=== PATIENT | male | born 1940 | race Caucasian/White ===

== ENCOUNTER 2018-11-24 00:57 | Emergency (ER) | payer MEDICARE, BC, SELFPAY ==
[2018-11-24 01:09] VITALS: BP 149/81; PULSE 55; RESP 14; TEMP 36.6; O2SAT 100
[2018-11-24 04:05] VITALS: BP 120/67; PULSE 55; RESP 16; O2SAT 97
--- NOTE | 2018-11-24 05:46 | ED.WOUNDLAC ---
HPI - Wound/Laceration General Chief Complaint: Wound/Laceration Stated Complaint: CUT RIGHT EAR WHEN HE ROLLED OUT OF BED Time Seen by Provider: 11/24/18 01:07 Source: patient and family Mode of arrival: ambulatory Limitations: no limitations History of Present Illness HPI narrative: 78-year-old male nonsmoker presents with his for evaluation of a large complex laceration behind his right after he accidentally rolled out of bed and struck his head. Takes no blood thinners, denies loss of consciousness, nausea, vomiting or. He denies any change in his ability to hear. He has no focal neurologic findings such as numbness, tingling or weakness. Onset (ago): minute(s) Location: scalp Place: home Patient tetanus UTD: Yes Context: accidental Associated symptoms: pain Related Data Previous Rx's Medication Instructions Recorded cephalexin [Keflex] 500 mg PO QID 7 Days #28 cap 11/24/18 Review of Systems Constitutional Denies chills, Denies fever(s), Denies lethargy and Denies weakness Eyes Denies change in vision, Denies eye discharge, Denies irritation and Denies loss of vision ENT Ears, Nose, Mouth, and Throat: Denies change in voice, Denies neck pain and Denies sore throat Cardiovascular Denies chest pain, Denies irregular heart rhythm, Denies lightheadedness, Denies palpitations, Denies dyspnea, Denies dyspnea on exertion and Denies orthopnea Respiratory Denies cough, Denies dyspnea, Denies dyspnea on exertion and Denies wheezing Gastrointestinal Gastrointestinal: Denies abdominal pain, Denies change in bowel habits, Denies diarrhea, Denies nausea and Denies vomiting Genitourinary Denies hematuria, Denies flank pain, Denies urinary incontinence and Denies urinary urgency Musculoskeletal Denies neck pain Integumentary/Breasts Denies pruritus, Denies erythema, Denies rash and Reports wounds Neurologic Denies confusion, Denies loss of vision and Denies weakness Psychiatric Denies anxiety, Denies confusion, Denies depression, Denies homicidal ideation and Denies suicidal ideation Endocrine Denies palpitations Hematologic/Lymphatic Denies easy bruising Allergic/Immunologic Denies wheezing PFSH Social History Smoking Status: Never smoker Social History Smoking Status: Never smoker Exam Narrative Exam Narrative: GEN: AOx3 and in mild distress EYES: Pupils are equal, round, and reactive to light and accommodation. Extraoccular muscles are intact bilaterally. There is no subconjunctival hemorrhage or exudate. EAR: 3 cm complex, deep laceration on the posterior aspect of right ear. No cartilage involvement. Minimal active bleeding. Minimal erythema in canal, no injury to [place], hemotympanum CHEST: Lungs are clear to auscultation bilaterally and free of wheezes, rales, or rhonchi. Heart rate is regular rhythm, there are no murmurs, clicks, rubs, or gallops. There is no chest wall tenderness. ABD: Abdomen is soft and nontender. There is no guarding or rebound. Bowel sounds are normal in all 4 quadrants. There is no mass or organomegaly. EXT: Full painless ROM of all extremities with no loss of sensation or strength. SKIN: Warm, pink, and dry. No erythema or rash Initial Vital Signs Initial Vital Signs: Vital Signs Temperature 97.8 F 11/24/18 01:09 Pulse Rate 55 L 11/24/18 01:09 Respiratory Rate 14 11/24/18 01:09 Blood Pressure 149/81 H 11/24/18 01:09 Pulse Oximetry 100 11/24/18 01:09 Procedures Laceration Repair Laceration 1: Site: scalp Side (If applicable): right Size (cm): 3 Description: irregular Depth: involves muscle layer Local Anesthetic: lidocaine 1% and with bicarb Amount of anesthesia used (mL): 4 Pre-repair: wound explored and irrigated extensively Skin layer closed with: nylon Size (cm): 6-0 Number of sutures: 10 Technique: simple, interrupted Subcutaneous layer closed with: vicryl Size: 5-0 Number of sutures: 3 Technique: simple, interrupted Course Vital Signs - 8 hr 11/24/18 01:09 11/24/18 04:05 Temperature 97.8 F Pulse Rate 55 L 55 L Respiratory Rate 14 16 Blood Pressure 149/81 H 120/67 Pulse Oximetry 100 97 Discharge Plan Departure Patient Disposition: Home Clinical Impression: Laceration Discharge Date/Time: 11/24/18 04:06 Interventions: ED Discharge Assessment Last Done: 11/24/18 04:05 Instructions: DI for Laceration Repair Activity Restrictions/Additional Instructions: *You have been diagnosed with [ complex laceration of the right ear ] *What to do: *Take medications as directed: Your antibiotic has been electronically transmitted to the [facility] [place] at your request *Follow up with [facility] ear nose and throat, call for an appointment. Let them know you were seen in the Emergency Department and that we ask that you be seen in follow up *Return to ER if you should have any new, worsening or concerning symptoms Please keep the wound clean and dry to the best of your ability. Please monitor for signs of infection such as redness to the skin or increasing pain. Have the sutures removed by your doctor in about 7 days. If you are unable to get into your doctor, we would be happy to remove the sutures in that same timeframe. Prescriptions: New cephalexin [Keflex] 500 mg capsule 500 mg PO QID 7 Days Qty: 28 RF: 0 Referrals: Royal Pike MD [Physician] -
== END 2018-11-24 04:06 | disposition home or self-care (01) ==
PROVIDERS: Emergency Provider Emergency Medicine; PCP Family Medicine
DX: S01.01XA Laceration without foreign body of scalp, initial encounter (principal)
CPT/HCPCS: 12032; 99283

== ENCOUNTER 2019-10-18 13:00 | Outpatient (RCR) | payer MEDICARE, BC, SELFPAY ==
--- NOTE | 2019-08-19 16:00 | PT.OIE ---
Current Diagnoses Stress incontinence (female) (male) (08/19/19) Fecal smearing (08/19/19) Personal history of malignant neoplasm of prostate (08/19/19) Visit Care Team Role Provider Type Luc Dillon MD Primary Care Provider Non-Staff Specialty: Medical Address: [address] [place] [address], [id number] Email: Beni Ambrocio MD Attending Provider Physician Specialty: Urology Address: [address] [place] [address], [phone] Email: Physical Therapy Initial Evaluation PT-OP-A Visit Information Start: 08/19/19 07:24 Freq: Status: Active Protocol: Document 08/19/19 13:45 AMB (Rec: 08/19/19 16:30 AMB [email or web address]) Out-Patient Physical Therapy Visit Information Visit Information Visit Type Initial Evaluation Visit Start Time 13:45 Visit Stop Time 14:30 Total Visit Minutes 45 Visit Number 1 PT-OP-B Current Condition Start: 08/19/19 07:24 Freq: Status: Active Protocol: Document 08/19/19 13:45 AMB (Rec: 08/19/19 16:30 AMB [email or web address]) Current Condition History of Current Condition Onset Date 2015 Current Complaints stress urinary incontinence, intermittent fecal incontinence History of Current Condition Ed had prostate surgery (no radiation) almost 4 years ago. Since that time he has noticed urinary incontinence especially with golf. He does wear pads, and feels that he can soak through one after a round of golf. He does walk rather than using a cart. He also notes leaking with lifting, a strong cough or sneeze, but denies leaking with sit to stand or supine to sit. He also has noticed fecal leaking, most prevelant when he has looser stools. The fecal incontinence happens several times per week. He notes usually he has type 3 bowel movements, but if it gets a little looser, after he has a bowel movement he will get fecal smearing. Treatment Goals Patient/Caregiver Goals Golf without leaking. Reduce fecal incontinence. Prior Functional Status Baseline Function- ADL's Independent Baseline Function- Mobility Independent Current Functional Impairments (Reported) Functional Limitations- ADL's Urinary incontinence with golf , lifting, cough sneeze Personal Factors Other Personal Factors That May Effect Personal history of neuropathy Therapy/Recovery , prior prostate surgery PT-OP-C Subjective Start: 08/19/19 07:24 Freq: Status: Active Protocol: Document 08/19/19 13:45 AMB (Rec: 08/19/19 16:30 AMB [email or web address]) Patient Questionnaires Pelvic Pain and Urgency/Frequency Patient Symptom Scale Pelvic Pain Score 3 PT-OP-I Pelvic Floor Start: 08/19/19 07:24 Freq: Status: Active Protocol: Document 08/19/19 13:45 AMB (Rec: 08/19/19 16:30 AMB [email or web address]) Pelvic Floor Assessment Urine Pelvic Floor Surgery Yes: prostate 2016 Leakage Size Medium Leakage Cause Cough,Exercise,Lifting,Sneeze Leaks Per Day constant Voiding Frequency 6x/day Nocturia 0 Urine Pad Type Maxi Pad Bowel Bowel Symptoms Fecal Leakage [place] Stool Chart Type 1-7 3 [place] Stool Chart Comments notes leaking when at a 4 on bristol stool scale Pelvic Clock Inter-Rectal Assessment fatigues quickly, needed cues to avoid gluteal compensation SEMG (uV) Baseline 2.5 Quick Contraction 20 10 Second Contraction 8.6 Recruitment Pattern Fair Stability of Hold Poor/Slow SEMG Stability of Rest Good Contraction Ability Voluntary Contraction Weak Voluntary Relaxation Moderate Muscle Endurance (Seconds) 4 Number of Quick Contractions In 10 4 Seconds Comments Pelvic Floor Comments inter rectal 2/5 PT-OP-T Assessment and Plan Start: 08/19/19 07:24 Freq: Status: Active Protocol: Document 08/19/19 13:45 AMB (Rec: 08/20/19 07:28 AMB [email or web address]) Physical Therapy Assessment Rehab Potential Rehabilitation Potential Good Evaluation Complexity Number of Personal Factors/Comorbidities 1-2 Number of Body Systems Impaired 1-2 Clinical Presentation at Evaluation Stable Impairments Impairments Functional Activities,Strength Goals Two Impairment Pelvic floor strength Short Term Goal (STG) Ed will improve his pelvic floor strength so that he can hold a pelvic floor contraction for 10 seconds in standing. STG Duration 4 weeks Halfway Goal (LTG) Ed will improve his pelvic floor strength to 4/5. LTG Duration 8 weeks One Impairment Urinary stress incontinence Short Term Goal (STG) Ed will lift 10 pounds from the floor to waist height without leaking urine. STG Duration 4 weeks Transportation Broker Goal (LTG) Ed will hit a golf ball without leaking urine. LTG Duration 8 weeks Assessment Summary Assessment Ed attends physical therapy with a 4 year history of stress urinary incontinence since his prostate surgery. His pelvic floor strength was poor, and this in combination with his surgical history is creating stress urinary incontinence with golf, lifting, and sometimes cough and sneeze. He had previously tried Kegels and did not find them helpful, but will benefit from a more regimented program. He may also benefit from pelvic floor strengthening for his intermittent fecal incontinence, which he notices when his bowel movements are looser than normal. Physical Therapy Plan Frequency and Duration Frequency of Treatment 1x/Week Duration of Treatment 8 weeks Plan of Care Start Date 08/19/19 Plan of Care End Date 10/14/19 Therapeutic Interventions Therapeutic Interventions Home Exercise Program,Manual Therapy,Neuromuscular Re- education,Self-Care/Home Management,Therapeutic Activities,Therapeutic Exercises Modalities Biofeedback,Electric Stimulation Next Visit Focus/Plan Next Note Type Treatment Note Next Visit Plan Progress with sEMG, can trial NMES. Progress into seated as able.
--- NOTE | 2019-08-19 16:00 | PT.OPPOC ---
Physical, Occupational & Speech Therapy At [facility] Current Diagnoses Stress incontinence (female) (male) (08/19/19) Fecal smearing (08/19/19) Personal history of malignant neoplasm of prostate (08/19/19) Visit Care Team Role Provider Type Luc Dillon MD Primary Care Provider Non-Staff Specialty: Medical Address: [address] [place] [address], [phone] Email: Beni Ambrocio MD Attending Provider Physician Specialty: Urology Address: [address] [place] [address], [id number] Email: Plan Of Care PT-OP-T Assessment and Plan Start: 08/19/19 07:24 Freq: Status: Active Protocol: Document 08/19/19 13:45 AMB (Rec: 08/20/19 07:28 AMB [email or web address]) Physical Therapy Assessment Rehab Potential Rehabilitation Potential Good Evaluation Complexity Number of Personal Factors/Comorbidities 1-2 Number of Body Systems Impaired 1-2 Clinical Presentation at Evaluation Stable Impairments Impairments Functional Activities,Strength Goals Two Impairment Pelvic floor strength Short Term Goal (STG) Ed will improve his pelvic floor strength so that he can hold a pelvic floor contraction for 10 seconds in standing. STG Duration 4 weeks Director Professional Services Goal (LTG) Ed will improve his pelvic floor strength to 4/5. LTG Duration 8 weeks One Impairment Urinary stress incontinence Short Term Goal (STG) Ed will lift 10 pounds from the floor to waist height without leaking urine. STG Duration 4 weeks Director Professional Services Goal (LTG) Ed will hit a golf ball without leaking urine. LTG Duration 8 weeks Assessment Summary Assessment Ed attends physical therapy with a 4 year history of stress urinary incontinence since his prostate surgery. His pelvic floor strength was poor, and this in combination with his surgical history is creating stress urinary incontinence with golf, lifting, and sometimes cough and sneeze. He had previously tried Kegels and did not find them helpful, but will benefit from a more regimented program. He may also benefit from pelvic floor strengthening for his intermittent fecal incontinence, which he notices when his bowel movements are looser than normal. Physical Therapy Plan Frequency and Duration Frequency of Treatment 1x/Week Duration of Treatment 8 weeks Plan of Care Start Date 08/19/19 Plan of Care End Date 10/14/19 Therapeutic Interventions Therapeutic Interventions Home Exercise Program,Manual Therapy,Neuromuscular Re- education,Self-Care/Home Management,Therapeutic Activities,Therapeutic Exercises Modalities Biofeedback,Electric Stimulation Next Visit Focus/Plan Next Note Type Treatment Note Next Visit Plan Progress with sEMG, can trial NMES. Progress into seated as able. Plan of Care Dates Plan of Care Start Date 08/19/19 Plan of Care End Date 10/14/19 Electronically Signed by: Kori Berg, PT 08/20/19 0729 Please Sign and Return: I have reviewed this Plan of Care and certify that the skilled therapy services above are required to meet the patient?s needs. Physician Signature Date Printed Name and Credentials Clinical Instructor Signature Printed Name and Credentials
--- NOTE | 2019-08-25 16:00 | PT.OTN ---
Current Diagnoses Stress incontinence (female) (male) (08/25/19) Fecal smearing (08/25/19) Personal history of malignant neoplasm of prostate (08/25/19) Physical Therapy Treatment Note PT-OP-A Visit Information Start: 08/19/19 07:24 Freq: Status: Active Protocol: Document 08/25/19 13:00 AMB (Rec: 08/26/19 07:35 AMB [email or web address]) Out-Patient Physical Therapy Visit Information Visit Information Visit Type Treatment Note Visit Start Time 13:00 Visit Stop Time 13:45 Total Visit Minutes 45 Visit Number 2 PT-OP-B Current Condition Start: 08/19/19 07:24 Freq: Status: Active Protocol: Document 08/19/19 13:45 AMB (Rec: 08/19/19 16:30 AMB [email or web address]) Current Condition History of Current Condition Onset Date 2015 Current Complaints stress urinary incontinence, intermittent fecal incontinence History of Current Condition Ed had prostate surgery (no radiation) almost 4 years ago. Since that time he has noticed urinary incontinence especially with golf. He does wear pads, and feels that he can soak through one after a round of golf. He does walk rather than using a cart. He also notes leaking with lifting, a strong cough or sneeze, but denies leaking with sit to stand or supine to sit. He also has noticed fecal leaking, most prevelant when he has looser stools. The fecal incontinence happens several times per week. He notes usually he has type 3 bowel movements, but if it gets a little looser, after he has a bowel movement he will get fecal smearing. Treatment Goals Patient/Caregiver Goals Golf without leaking. Reduce fecal incontinence. Prior Functional Status Baseline Function- ADL's Independent Baseline Function- Mobility Independent Current Functional Impairments (Reported) Functional Limitations- ADL's Urinary incontinence with golf , lifting, cough sneeze Personal Factors Other Personal Factors That May Effect Personal history of neuropathy Therapy/Recovery , prior prostate surgery PT-OP-C Subjective Start: 08/19/19 07:24 Freq: Status: Active Protocol: Document 08/25/19 13:00 AMB (Rec: 08/26/19 07:35 AMB [email or web address]) OP-PT Subjective Patient Comments Patient Comments Pt is feeling about the same, has been doing HEP. PT-OP-I Pelvic Floor Start: 08/19/19 07:24 Freq: Status: Active Protocol: Document 08/19/19 13:45 AMB (Rec: 08/19/19 16:30 AMB [email or web address]) Pelvic Floor Assessment Urine Pelvic Floor Surgery Yes: prostate 2016 Leakage Size Medium Leakage Cause Cough,Exercise,Lifting,Sneeze Leaks Per Day constant Voiding Frequency 6x/day Nocturia 0 Urine Pad Type Maxi Pad Bowel Bowel Symptoms Fecal Leakage [place] Stool Chart Type 1-[address] [place] Stool Chart Comments notes leaking when at a 4 on bristol stool scale Pelvic Clock Inter-Rectal Assessment fatigues quickly, needed cues to avoid gluteal compensation SEMG (uV) Baseline 2.5 Quick Contraction 20 10 Second Contraction 8.6 Recruitment Pattern Fair Stability of Hold Poor/Slow SEMG Stability of Rest Good Contraction Ability Voluntary Contraction Weak Voluntary Relaxation Moderate Muscle Endurance (Seconds) 4 Number of Quick Contractions In 10 4 Seconds Comments Pelvic Floor Comments inter rectal 2/5 PT-OP-Q Treatments Start: 08/19/19 07:24 Freq: Status: Active Protocol: Document 08/25/19 13:00 AMB (Rec: 08/26/19 07:35 AMB [email or web address]) Therapeutic Exercises Sitting Exercises 2 Sitting Exercise Name roll out Resistance #2 t band Reps/Minutes 2x10 1 Sitting Exercise Name roll in Reps/Minutes 2x10 Neuro Re-Education Treatment Other Activities 1 Details sEMG Comments sidelying: quick flicks and long holds with vc for breathing and to avoid PT-OP-T Assessment and Plan Start: 08/19/19 07:24 Freq: Status: Active Protocol: Document 08/25/19 13:28 AMB (Rec: 08/25/19 13:29 AMB [id number]) Physical Therapy Assessment Assessment Summary Assessment Originally max 31, after reps 28. avg 14.6, baseline 2.3. Pt does continue to show fatigue after repetitions and with 10 second holds. Tolerated roll in roll outs well. Physical Therapy Plan Next Visit Focus/Plan Next Note Type Treatment Note Next Visit Plan Progress with sEMG, can trial NMES. Progress into seated as able.
--- NOTE | 2019-09-08 09:55 | PT.OTN ---
Current Diagnoses Stress incontinence (female) (male) (09/08/19) Fecal smearing (09/08/19) Personal history of malignant neoplasm of prostate (09/08/19) Physical Therapy Treatment Note PT-OP-A Visit Information Start: 08/19/19 07:24 Freq: Status: Active Protocol: Document 09/08/19 08:15 AMB (Rec: 09/08/19 08:33 AMB [id number]) Out-Patient Physical Therapy Visit Information Visit Information Visit Type Treatment Note Visit Start Time 08:15 Visit Stop Time 09:00 Total Visit Minutes 45 Visit Number 3 PT-OP-B Current Condition Start: 08/19/19 07:24 Freq: Status: Active Protocol: Document 08/19/19 13:45 AMB (Rec: 08/19/19 16:30 AMB [email or web address]) Current Condition History of Current Condition Onset Date 2015 Current Complaints stress urinary incontinence, intermittent fecal incontinence History of Current Condition Ed had prostate surgery (no radiation) almost 4 years ago. Since that time he has noticed urinary incontinence especially with golf. He does wear pads, and feels that he can soak through one after a round of golf. He does walk rather than using a cart. He also notes leaking with lifting, a strong cough or sneeze, but denies leaking with sit to stand or supine to sit. He also has noticed fecal leaking, most prevelant when he has looser stools. The fecal incontinence happens several times per week. He notes usually he has type 3 bowel movements, but if it gets a little looser, after he has a bowel movement he will get fecal smearing. Treatment Goals Patient/Caregiver Goals Golf without leaking. Reduce fecal incontinence. Prior Functional Status Baseline Function- ADL's Independent Baseline Function- Mobility Independent Current Functional Impairments (Reported) Functional Limitations- ADL's Urinary incontinence with golf , lifting, cough sneeze Personal Factors Other Personal Factors That May Effect Personal history of neuropathy Therapy/Recovery , prior prostate surgery PT-OP-C Subjective Start: 08/19/19 07:24 Freq: Status: Active Protocol: Document 09/08/19 08:15 AMB (Rec: 09/08/19 08:33 AMB [id number]) OP-PT Subjective Patient Comments Patient Comments Pt definitely noticed leaking with snow shoveling over the last week. Overall doing about the same, is doing his HEP. PT-OP-I Pelvic Floor Start: 08/19/19 07:24 Freq: Status: Active Protocol: Document 08/19/19 13:45 AMB (Rec: 08/19/19 16:30 AMB [email or web address]) Pelvic Floor Assessment Urine Pelvic Floor Surgery Yes: prostate 2016 Leakage Size Medium Leakage Cause Cough,Exercise,Lifting,Sneeze Leaks Per Day constant Voiding Frequency 6x/day Nocturia 0 Urine Pad Type Maxi Pad Bowel Bowel Symptoms Fecal Leakage [place] Stool Chart Type 1-7 3 [place] Stool Chart Comments notes leaking when at a 4 on bristol stool scale Pelvic Clock Inter-Rectal Assessment fatigues quickly, needed cues to avoid gluteal compensation SEMG (uV) Baseline 2.5 Quick Contraction 20 10 Second Contraction 8.6 Recruitment Pattern Fair Stability of Hold Poor/Slow SEMG Stability of Rest Good Contraction Ability Voluntary Contraction Weak Voluntary Relaxation Moderate Muscle Endurance (Seconds) 4 Number of Quick Contractions In 10 4 Seconds Comments Pelvic Floor Comments inter rectal 2/5 PT-OP-Q Treatments Start: 08/19/19 07:24 Freq: Status: Active Protocol: Document 09/08/19 08:15 AMB (Rec: 09/08/19 09:32 AMB [id number]) Therapeutic Exercises Sitting Exercises 2 Sitting Exercise Name roll out Resistance #2 t band Reps/Minutes 2x10 1 Sitting Exercise Name roll in Reps/Minutes 2x10 Comments cue Standing Exercises 1 Standing Exercise Name WBOS/ stride stance Reps/Minutes quick flicks and long holds with breath Neuro Re-Education Treatment Other Activities 1 Details sEMG Comments sidelying: quick flicks and long holds with vc for breathing and to avoid gluts/ abs. PT-OP-T Assessment and Plan Start: 08/19/19 07:24 Freq: Status: Active Protocol: Document 09/08/19 08:15 AMB (Rec: 09/08/19 09:32 AMB [id number]) Physical Therapy Assessment Assessment Summary Assessment Pt did well in sidelying, but needed extensive cueing for breathing and to work on isolation when in standing. Physical Therapy Plan Next Visit Focus/Plan Next Note Type Treatment Note Next Visit Plan Progress with sEMG, can trial NMES. Progress into standing and standing with movement.
--- NOTE | 2019-09-14 16:00 | PT.OTN ---
Current Diagnoses Stress incontinence (female) (male) (09/14/19) Fecal smearing (09/14/19) Personal history of malignant neoplasm of prostate (09/14/19) Physical Therapy Treatment Note PT-OP-A Visit Information Start: 08/19/19 07:24 Freq: Status: Active Protocol: Document 09/14/19 14:30 AMB (Rec: 09/15/19 08:27 AMB [id number]) Out-Patient Physical Therapy Visit Information Visit Information Visit Type Treatment Note Visit Start Time 14:30 Visit Stop Time 15:15 Total Visit Minutes 45 Visit Number 4 PT-OP-B Current Condition Start: 08/19/19 07:24 Freq: Status: Active Protocol: Document 08/19/19 13:45 AMB (Rec: 08/19/19 16:30 AMB [email or web address]) Current Condition History of Current Condition Onset Date 2015 Current Complaints stress urinary incontinence, intermittent fecal incontinence History of Current Condition Ed had prostate surgery (no radiation) almost 4 years ago. Since that time he has noticed urinary incontinence especially with golf. He does wear pads, and feels that he can soak through one after a round of golf. He does walk rather than using a cart. He also notes leaking with lifting, a strong cough or sneeze, but denies leaking with sit to stand or supine to sit. He also has noticed fecal leaking, most prevelant when he has looser stools. The fecal incontinence happens several times per week. He notes usually he has type 3 bowel movements, but if it gets a little looser, after he has a bowel movement he will get fecal smearing. Treatment Goals Patient/Caregiver Goals Golf without leaking. Reduce fecal incontinence. Prior Functional Status Baseline Function- ADL's Independent Baseline Function- Mobility Independent Current Functional Impairments (Reported) Functional Limitations- ADL's Urinary incontinence with golf , lifting, cough sneeze Personal Factors Other Personal Factors That May Effect Personal history of neuropathy Therapy/Recovery , prior prostate surgery PT-OP-C Subjective Start: 08/19/19 07:24 Freq: Status: Active Protocol: Document 09/14/19 14:30 AMB (Rec: 09/15/19 08:27 AMB [id number]) OP-PT Subjective Patient Comments Patient Comments Pt is noticing that he thinks the exercises are getting a little easier, although breathing with it is still hard. Pt continuing to notice leaking with lifting (lifting a grocery bag, not unloading [employer]). PT-OP-I Pelvic Floor Start: 08/19/19 07:24 Freq: Status: Active Protocol: Document 08/19/19 13:45 AMB (Rec: 08/19/19 16:30 AMB [email or web address]) Pelvic Floor Assessment Urine Pelvic Floor Surgery Yes: prostate 2016 Leakage Size Medium Leakage Cause Cough,Exercise,Lifting,Sneeze Leaks Per Day constant Voiding Frequency 6x/day Nocturia 0 Urine Pad Type Maxi Pad Bowel Bowel Symptoms Fecal Leakage [place] Stool Chart Type 1-7 3 [place] Stool Chart Comments notes leaking when at a 4 on bristol stool scale Pelvic Clock Inter-Rectal Assessment fatigues quickly, needed cues to avoid gluteal compensation SEMG (uV) Baseline 2.5 Quick Contraction 20 10 Second Contraction 8.6 Recruitment Pattern Fair Stability of Hold Poor/Slow SEMG Stability of Rest Good Contraction Ability Voluntary Contraction Weak Voluntary Relaxation Moderate Muscle Endurance (Seconds) 4 Number of Quick Contractions In 10 4 Seconds Comments Pelvic Floor Comments inter rectal 2/5 PT-OP-Q Treatments Start: 08/19/19 07:24 Freq: Status: Active Protocol: Document 09/14/19 14:30 AMB (Rec: 09/15/19 08:27 AMB [id number]) Therapeutic Exercises Standing Exercises 2 Standing Exercise Name putting stance Comments quick flicks and long holds 1 Standing Exercise Name WBOS/ stride stance Reps/Minutes quick flicks and long holds with breath Neuro Re-Education Treatment Other Activities 1 Details sEMG Comments sidelying: quick flicks and long holds with vc for breathing and to avoid gluts/ abs. PT-OP-T Assessment and Plan Start: 08/19/19 07:24 Freq: Status: Active Protocol: Document 09/14/19 14:30 AMB (Rec: 09/15/19 08:27 AMB [id number]) Physical Therapy Assessment Assessment Summary Assessment Better breathing today. Max 37, avg 16, baseline 3. Challenged my holding pelvic floor while moving. Physical Therapy Plan Next Visit Focus/Plan Next Note Type Treatment Note Next Visit Plan Continue to work in standing, like in golfing, try to add in movement.
--- NOTE | 2019-09-20 14:44 | PT.OTN ---
Current Diagnoses Stress incontinence (female) (male) (09/20/19) Fecal smearing (09/20/19) Personal history of malignant neoplasm of prostate (09/20/19) Physical Therapy Treatment Note PT-OP-A Visit Information Start: 08/19/19 07:24 Freq: Status: Active Protocol: Document 09/20/19 09:03 AMB (Rec: 09/20/19 09:49 AMB [id number]) Out-Patient Physical Therapy Visit Information Visit Information Visit Type Treatment Note Visit Start Time 09:00 Visit Stop Time 09:45 Total Visit Minutes 45 Visit Number 5 PT-OP-B Current Condition Start: 08/19/19 07:24 Freq: Status: Active Protocol: Document 08/19/19 13:45 AMB (Rec: 08/19/19 16:30 AMB [email or web address]) Current Condition History of Current Condition Onset Date 2015 Current Complaints stress urinary incontinence, intermittent fecal incontinence History of Current Condition Ed had prostate surgery (no radiation) almost 4 years ago. Since that time he has noticed urinary incontinence especially with golf. He does wear pads, and feels that he can soak through one after a round of golf. He does walk rather than using a cart. He also notes leaking with lifting, a strong cough or sneeze, but denies leaking with sit to stand or supine to sit. He also has noticed fecal leaking, most prevelant when he has looser stools. The fecal incontinence happens several times per week. He notes usually he has type 3 bowel movements, but if it gets a little looser, after he has a bowel movement he will get fecal smearing. Treatment Goals Patient/Caregiver Goals Golf without leaking. Reduce fecal incontinence. Prior Functional Status Baseline Function- ADL's Independent Baseline Function- Mobility Independent Current Functional Impairments (Reported) Functional Limitations- ADL's Urinary incontinence with golf , lifting, cough sneeze Personal Factors Other Personal Factors That May Effect Personal history of neuropathy Therapy/Recovery , prior prostate surgery PT-OP-C Subjective Start: 08/19/19 07:24 Freq: Status: Active Protocol: Document 09/20/19 09:00 AMB (Rec: 09/20/19 10:23 AMB [id number]) OP-PT Subjective Patient Comments Patient Comments Pt states he has been doing his HEP and doing so with the breathing has begun to get easier. Symptoms remain about the same. PT-OP-I Pelvic Floor Start: 08/19/19 07:24 Freq: Status: Active Protocol: Document 08/19/19 13:45 AMB (Rec: 08/19/19 16:30 AMB [email or web address]) Pelvic Floor Assessment Urine Pelvic Floor Surgery Yes: prostate 2016 Leakage Size Medium Leakage Cause Cough,Exercise,Lifting,Sneeze Leaks Per Day constant Voiding Frequency 6x/day Nocturia 0 Urine Pad Type Maxi Pad Bowel Bowel Symptoms Fecal Leakage [place] Stool Chart Type 1-7 3 [place] Stool Chart Comments notes leaking when at a 4 on bristol stool scale Pelvic Clock Inter-Rectal Assessment fatigues quickly, needed cues to avoid gluteal compensation SEMG (uV) Baseline 2.5 Quick Contraction 20 10 Second Contraction 8.6 Recruitment Pattern Fair Stability of Hold Poor/Slow SEMG Stability of Rest Good Contraction Ability Voluntary Contraction Weak Voluntary Relaxation Moderate Muscle Endurance (Seconds) 4 Number of Quick Contractions In 10 4 Seconds Comments Pelvic Floor Comments inter rectal 2/5 PT-OP-Q Treatments Start: 08/19/19 07:24 Freq: Status: Active Protocol: Document 09/20/19 09:03 AMB (Rec: 09/20/19 09:49 AMB [id number]) Therapeutic Exercises Sitting Exercises 1 Sitting Exercise Name roll in Reps/Minutes 2x10 Comments cue Standing Exercises 3 Standing Exercise Name lifting 5# Reps/Minutes 20, partial squat only Comments with breath control 2 Standing Exercise Name putting stance Comments quick flicks and long holds 1 Standing Exercise Name full squat PT-OP-T Assessment and Plan Start: 08/19/19 07:24 Freq: Status: Active Protocol: Document 09/20/19 09:00 AMB (Rec: 09/20/19 10:42 AMB [id number]) Physical Therapy Assessment Assessment Summary Assessment Pt with good form with squatting after demonstration. Unable to hold pelvic floor through full squat, but good awareness with partial squat. Physical Therapy Plan Next Visit Focus/Plan Next Note Type Progress Note Next Visit Plan See pt in one month to follow up, retest strength, check for symptomatic improvement.
--- NOTE | 2019-10-18 16:00 | PT.OTN ---
Current Diagnoses Stress incontinence (female) (male) (10/18/19) Fecal smearing (10/18/19) Personal history of malignant neoplasm of prostate (10/18/19) Physical Therapy Treatment Note PT-OP-A Visit Information Start: 08/19/19 07:24 Freq: Status: Active Protocol: Document 10/18/19 13:00 AMB (Rec: 10/18/19 16:25 AMB [email or web address]) Out-Patient Physical Therapy Visit Information Visit Information Visit Type Discharge Summary Visit Start Time 13:00 Visit Stop Time 13:45 Total Visit Minutes 45 Visit Number 6 PT-OP-B Current Condition Start: 08/19/19 07:24 Freq: Status: Active Protocol: Document 08/19/19 13:45 AMB (Rec: 08/19/19 16:30 AMB [email or web address]) Current Condition History of Current Condition Onset Date 2015 Current Complaints stress urinary incontinence, intermittent fecal incontinence History of Current Condition Ed had prostate surgery (no radiation) almost 4 years ago. Since that time he has noticed urinary incontinence especially with golf. He does wear pads, and feels that he can soak through one after a round of golf. He does walk rather than using a cart. He also notes leaking with lifting, a strong cough or sneeze, but denies leaking with sit to stand or supine to sit. He also has noticed fecal leaking, most prevelant when he has looser stools. The fecal incontinence happens several times per week. He notes usually he has type 3 bowel movements, but if it gets a little looser, after he has a bowel movement he will get fecal smearing. Treatment Goals Patient/Caregiver Goals Golf without leaking. Reduce fecal incontinence. Prior Functional Status Baseline Function- ADL's Independent Baseline Function- Mobility Independent Current Functional Impairments (Reported) Functional Limitations- ADL's Urinary incontinence with golf , lifting, cough sneeze Personal Factors Other Personal Factors That May Effect Personal history of neuropathy Therapy/Recovery , prior prostate surgery PT-OP-C Subjective Start: 08/19/19 07:24 Freq: Status: Active Protocol: Document 10/18/19 13:00 AMB (Rec: 10/18/19 16:25 AMB [email or web address]) OP-PT Subjective Patient Comments Patient Comments Pt states urinary incontinence has decreased by about 50% since initiating PT. He was able to do a lot of yardwork without about half the leaking , but is still noticing urinary leaking at times and fecal leakage at times as well . PT-OP-I Pelvic Floor Start: 08/19/19 07:24 Freq: Status: Active Protocol: Document 08/19/19 13:45 AMB (Rec: 08/19/19 16:30 AMB [email or web address]) Pelvic Floor Assessment Urine Pelvic Floor Surgery Yes: prostate 2016 Leakage Size Medium Leakage Cause Cough,Exercise,Lifting,Sneeze Leaks Per Day constant Voiding Frequency 6x/day Nocturia 0 Urine Pad Type Maxi Pad Bowel Bowel Symptoms Fecal Leakage [place] Stool Chart Type 1-7 3 [place] Stool Chart Comments notes leaking when at a 4 on bristol stool scale Pelvic Clock Inter-Rectal Assessment fatigues quickly, needed cues to avoid gluteal compensation SEMG (uV) Baseline 2.5 Quick Contraction 20 10 Second Contraction 8.6 Recruitment Pattern Fair Stability of Hold Poor/Slow SEMG Stability of Rest Good Contraction Ability Voluntary Contraction Weak Voluntary Relaxation Moderate Muscle Endurance (Seconds) 4 Number of Quick Contractions In 10 4 Seconds Comments Pelvic Floor Comments inter rectal 2/5 PT-OP-Q Treatments Start: 08/19/19 07:24 Freq: Status: Active Protocol: Document 10/18/19 13:00 AMB (Rec: 10/19/19 11:05 AMB [email or web address]) Therapeutic Exercises Standing Exercises 1 Standing Exercise Name partial lunge with long holds and quick flicks Comments difficulty holding long hold and coming back up Therapeutic Activity Therapeutic Activity 1 Name breath control with golf swing Comments Pt has a tendency to hold his breath, which does not help him contract pelvic floor. Multiple repetitions with focus on breathing and emigdio pelvic floor with golf swing- pt improved with practice. Neuro Re-Education Treatment Other Activities 1 Details sEMG Comments sidelying: quick flicks and long holds with vc for breathing and to avoid gluts/ abs. PT-OP-T Assessment and Plan Start: 08/19/19 07:24 Freq: Status: Active Protocol: Document 10/18/19 13:00 AMB (Rec: 10/19/19 11:05 AMB [email or web address]) Physical Therapy Assessment Goals Two Impairment Pelvic floor strength Short Term Goal (STG) Ed will improve his pelvic floor strength so that he can hold a pelvic floor contraction for 10 seconds in standing. STG Duration MET Long-Term Goal (LTG) Ed will improve his pelvic floor strength to 4/5. LTG Duration 8 weeks One Impairment Urinary stress incontinence Short Term Goal (STG) Ed will lift 10 pounds from the floor to waist height without leaking urine. STG Duration Intermittently MET Long-Term Goal (LTG) Ed will hit a golf ball without leaking urine. LTG Duration Intermittently met Assessment Summary Assessment Pt with better form and ability to perform lunges after instruction today. Quick flicks with lunges for HEP. Overall pt reports sx reduction of about 50%. His muscle activity as tested by biofeedback, has also improved signficantly. Pt is going to follow up with urologist. 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 Time and continued strengthening should continue to improve. Ed's continence with golf and lifting also depends on how much he has done, as he does continue to fatigue with extended activity. Physical Therapy Plan Frequency and Duration Frequency of Treatment 1x/Week Duration of Treatment 1 week Plan of Care Start Date 10/14/19 Plan of Care End Date 10/21/19 Therapeutic Interventions Therapeutic Interventions Home Exercise Program,Manual Therapy,Neuromuscular Re- education,Self-Care/Home Management,Therapeutic Activities,Therapeutic Exercises Modalities Biofeedback,Electric Stimulation Next Visit Focus/Plan Next Note Type Progress Note Next Visit Plan See pt in one month to follow up, retest strength, check for symptomatic improvement.
--- NOTE | 2019-10-18 16:00 | PT.OPPOC ---
Physical, Occupational & Speech Therapy At [facility] Current Diagnoses Stress incontinence (female) (male) (10/18/19) Fecal smearing (10/18/19) Personal history of malignant neoplasm of prostate (10/18/19) Visit Care Team Role Provider Type Luc Dillon MD Primary Care Provider Non-Staff Specialty: Medical Address: [address] [place] [address], [id number] Email: Beni Ambrocio MD Attending Provider Physician Specialty: Urology Address: [address] [place] [address], [id number] Email: Plan Of Care PT-OP-T Assessment and Plan Start: 08/19/19 07:24 Freq: Status: Active Protocol: Document 10/18/19 13:00 AMB (Rec: 10/19/19 11:05 AMB [email or web address]) Physical Therapy Assessment Goals Two Impairment Pelvic floor strength Short Term Goal (STG) Ed will improve his pelvic floor strength so that he can hold a pelvic floor contraction for 10 seconds in standing. STG Duration MET Alf Goal (LTG) Ed will improve his pelvic floor strength to 4/5. LTG Duration 8 weeks One Impairment Urinary stress incontinence Short Term Goal (STG) Ed will lift 10 pounds from the floor to waist height without leaking urine. STG Duration Intermittently MET [employer] Goal (LTG) Ed will hit a golf ball without leaking urine. LTG Duration Intermittently met Assessment Summary Assessment Pt with better form and ability to perform lunges after instruction today. Quick flicks with lunges for HEP. Overall pt reports sx reduction of about 50%. His muscle activity as tested by biofeedback, has also improved signficantly. Pt is going to follow up with urologist. 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 Time and continued strengthening should continue to improve. Ed's continence with golf and lifting also depends on how much he has done, as he does continue to fatigue with extended activity. Physical Therapy Plan Frequency and Duration Frequency of Treatment 1x/Week Duration of Treatment 1 week Plan of Care Start Date 10/14/19 Plan of Care End Date 10/21/19 Therapeutic Interventions Therapeutic Interventions Home Exercise Program,Manual Therapy,Neuromuscular Re- education,Self-Care/Home Management,Therapeutic Activities,Therapeutic Exercises Modalities Biofeedback,Electric Stimulation Next Visit Focus/Plan Next Note Type Progress Note Next Visit Plan See pt in one month to follow up, retest strength, check for symptomatic improvement. Plan of Care Dates Plan of Care Start Date 10/14/19 Plan of Care End Date 10/21/19 Electronically Signed by: Kori Berg, PT 10/19/19 [id number] Please Sign and Return: I have reviewed this Plan of Care and certify that the skilled therapy services above are required to meet the patient?s needs. Physician Signature Date Printed Name and Credentials Clinical Instructor Signature Printed Name and Credentials
== END 2019-10-22 08:19 ==
LOC: PHYS 13:00
PROVIDERS: PCP Family Medicine; Visit Provider Specialist
DX: N39.3 Stress incontinence (female) (male) (principal); Z85.46 Personal history of malignant neoplasm of prostate; R15.1 Fecal smearing
CPT/HCPCS: 97110; 97112; 97161; 97530